=== PATIENT | female | born 1995 | race Caucasian/White ===

== ENCOUNTER → 2024-12-01 | Outpatient (CLI) | payer OTHER | LOC: M RAD 07:20 | PROVIDERS: ATTEND Student in an Organized Health Care Education/Training Program | DX: M67.432 Ganglion, left wrist (principal) ==

== ENCOUNTER 2025-05-03 14:25 | Outpatient (CLI) | payer OTHER ==
[2025-05-03 14:25] VITALS: BP 138/80; O2SAT 8
[2025-05-03] MEDS: methylPREDNISolone 1,000 MG, VIAL MATE ADAPTER 1 EACH in NS 100 ML IV ONE (14:34)
[2025-05-03 15:45] VITALS: BP 132/78; O2SAT 99
== END 2025-05-03 15:45 ==
LOC: M INFU 14:25
PROVIDERS: ATTEND Psychiatry & Neurology Neurology
DX: G35 Multiple sclerosis (principal)
CPT/HCPCS: 96365; J2919